=== PATIENT | female | born 1995 | race Two or more races ===

== ENCOUNTER 2019-01-22 11:45 | Emergency (ER) | payer OTHER ==
[~2019-01-22] VITALS: Ht 170.2 cm; Wt 60.0 kg
[2019-01-22] MEDS ORDERED: KETOROLAC 60MG/2ML VIAL IM STA (12:40)
[2019-01-22] MEDS ORDERED: LIDOCAINE 1%/EPI 1:100,000 10 ML VIAL IJ ONE (12:45)
[2019-01-22] MEDS ORDERED: BACITRACIN ZINC OINT UDPKT TOP ONE (12:45)
[2019-01-22 14:26] VITALS: BP 107/51
== END 2019-01-22 14:27 | disposition home or self-care (01) ==
LOC: ER 11:45
DX: L72.3 Sebaceous cyst (principal); L02.411 Cutaneous abscess of right axilla
CPT/HCPCS: 81025; 96372; 99283; A4217; J1885; J3490; Z7610

== ENCOUNTER 2019-01-24 10:47 | Emergency (ER) | payer OTHER ==
[~2019-01-24] VITALS: Ht 170.2 cm; Wt 58.0 kg
[2019-01-24] MEDS: IBUPROFEN 600MG TABLET PO ONE ×2 (12:39→12:42)
[2019-01-24 13:11] VITALS: BP 112/66
== END 2019-01-24 13:12 | disposition home or self-care (01) ==
LOC: ER 10:56
DX: Z48.00 Encounter for change or removal of nonsurgical wound dressing (principal); L73.2 Hidradenitis suppurativa
CPT/HCPCS: 99281; Z7610